=== PATIENT | male | born 1955 | race Caucasian/White ===

== ENCOUNTER → 2017-06-13 | Outpatient (CLI) | payer MEDICARE, OTHER ==
--- NOTE | 2017-06-13 09:56 | RAD ---
MRI Cervical Spine Without Contrast History: Cervical radiculitis, previous cervical fusion Technique: Multiplanar, multi sequential noncontrast MR imaging was performed of the cervical spine. Comparison: None Findings: There is prominent motion degradation even for repeated images. Cervical cord caliber is grossly within normal limits, no obvious expansile signal abnormality. There is interbody fusion C5-6. Cervical vertebral body stature is overall adequate. There is negligible anterior spondylolisthesis C4-5. C2-3: Spinal canal is adequate. Neural foramina are not obviously narrowed. C3-4: Spinal canal is overall adequate. There is facet hypertrophic change. The is likely right uncovertebral degenerative change. There may be mild/moderate narrowing of the right neural foramen, left neural foramen not obviously narrowed. C4-5: There is severe left facet hypertrophic change. There is likely mild narrowing of the central canal narrowed to 9 mm. There may be a shallow posterior central protrusion. There is likely mild uncovertebral degenerative change. Neural foramina are poorly evaluated, probable at least moderate narrowing of the left neural foramen and at least mild narrowing on the right. C5-6: There is moderate to severe facet hypertrophic change bilaterally. Spinal canal is adequate. Neural foramina are overall adequate. C6-7: There is bilateral facet hypertrophic change. There is buckling of the ligamentum flavum. Central canal is overall likely adequate at 10-11 mm. There is likely uncovertebral degenerative change. There is likely [id number] left and [id number] right neural foramina compromise. C7-T1: Spinal canal is overall adequate. There is uncovertebral degenerative change. There is probable mild neural foramina compromise bilaterally. Impression: 1. Exam is degraded by prominent motion. There is no significant cervical spinal stenosis. There is likely mild/moderate neural foramina compromise as stated due to facet and uncovertebral degenerative change although limited accurate characterization. 2. There is interbody fusion C5-6. 3. There is multilevel facet degenerative change. There is negligible anterior spondylolisthesis C4-5. Electronically signed by: Alexis White MD (06/13/2017 9:52 AM) [id number]
== END | disposition home or self-care (01) ==
LOC: MRI 08:41
PROVIDERS: ATTEND Nurse Practitioner Family
DX: M47.22 Other spondylosis with radiculopathy, cervical region (principal); M43.12 Spondylolisthesis, cervical region; Z98.1 Arthrodesis status
CPT/HCPCS: 72141